=== PATIENT | female | born 1970 | race Caucasian/White ===

== ENCOUNTER 2016-11-05 17:10 | Emergency (ER) | payer OTHER ==
[~2016-11-05] VITALS: Wt 54.4 kg
[~2016-11-05 17:10] MED LIST: AMOXICILLIN500 MG PO; AMOXIL125 MG/5 M PO; CIPRO500 MG PO; CLARITIN10 MG PO; DIFLUCAN150 MG PO; FLEXERIL10 MG PO; FLEXERIL5 MG PO; HYDROCODONE BIT1 T11 PO; MEDROL DOSEPAK4 MG PO; MOTRIN800 MG PO; NYQUIL; OMEPRAZOLE20 MG PO; PREDNICOT20 MG PO; PREDNISONE20 M1 PO; PROVENTIL0.09 MG/AC IH; TRAMADOL HCL50 MG PO; TYLENOL EXTRA500 MG PO; ULTRAM50 MG PO; VIBRAMYCIN100 MG PO; VICODIN 5/500 505 MG PO; VICODIN ES 7501 TAB PO; ZITHROMAX Z PA250 MG PO; ZOCOR5 MG PO
[2016-11-05 18:19] LABS: BASO # 0.1 10*3/uL (0.0-0.1); BASO % 0.6 % (0.0-1.0); EOS # 0.9 10*3/uL (0.0-0.4); HEMOGLOBIN 11.9 g/dl (12.0-16.0); IG # 0.1 10*3/uL (0.0-0.1); LYMPH # 2.2 10*3/uL (1.3-4.4); LYMPH % 17.6 % (27.0-41.0); MEAN CELL VOLUME 95.5 fl (81.0-99.0); MEAN CORPUSCULAR HGB 31.6 pg (27.0-31.0); MEAN CORPUSCULAR HGB CONC 33.1 g/dl (33.0-37.0); MEAN PLATELET VOLUME 10.2 fl (9.6-12.3); MONO # 0.6 10*3/uL (0.1-1.0); NEUT # 8.8 10*3/uL (2.3-7.9); NEUT % 69.4 % (47.0-73.0); PLATELET COUNT AUTOMATED 247 10*3/uL (130-400); RED BLOOD COUNT 3.77 10*6/uL (4.10-5.10); RED CELL DISTRI WIDTH 12.8 % (0-14.5); WHITE BLOOD COUNT 12.7 10*3/uL (4.8-10.8)
[2016-11-05 18:28] LABS: PROTHROMBIN TIME 10.1 SECONDS (9.0-12.4)
[2016-11-05 18:38] LABS: ALBUMIN 3.2 gm/dl (3.1-4.5); ALKALINE PHOSPHATASE 66 U/L (45-117); BILIRUBIN, TOTAL 0.2 mg/dl (0.2-1.0); BUN 10 mg/dl (7-24); CARBON DIOXIDE 29 mmol/L (21-32); CHLORIDE 107 mmol/L (98-107); EST GLOM FILT AFRICAN AMERICAN > 60 ml/min; GLUCOSE 95 mg/dL (65-99); POTASSIUM 4.4 mmol/L (3.5-5.1); SGOT/AST 17 IU/L (3-35); SGPT/ALT 20 U/L (12-78); SODIUM 142 mmol/L (136-145)
[2016-11-05 18:39] LABS: TROPONIN I < 0.015 ng/ml (<0.045)
[2016-11-05 19:46] VITALS: BP 108/67
[2016-11-05] MEDS ORDERED: LEVAQUIN750 M1 PO (21:25)
== END 2016-11-05 21:31 | disposition home or self-care (01) ==
LOC: ED 17:10
PROVIDERS: Physician Assistant
DX: J18.9 Pneumonia, unspecified organism (principal); F17.200 Nicotine dependence, unspecified, uncomplicated; Z88.1 Allergy status to other antibiotic agents; Z88.6 Allergy status to analgesic agent

== ENCOUNTER 2017-05-13 15:30 | Emergency (ER) | payer OTHER ==
[~2017-05-13 15:30] MED LIST changes: +LEVAQUIN750 M1 PO
[2017-05-13 15:48] VITALS: BP 120/83
[2017-05-13] MEDS ORDERED: Motrin,Rufen800 MG PO (16:12)
[2017-05-13] MEDS ORDERED: CYCLOBENZAPRINE10 MG PO (16:12)
== END 2017-05-13 16:19 | disposition home or self-care (01) ==
LOC: ED 15:30
DX: G89.29 Other chronic pain (principal); M54.41 Lumbago with sciatica, right side; F17.200 Nicotine dependence, unspecified, uncomplicated; Z98.51 Tubal ligation status; Z90.710 Acquired absence of both cervix and uterus; Z88.6 Allergy status to analgesic agent; Z79.899 Other long term (current) drug therapy

== ENCOUNTER 2017-07-01 13:57 | Emergency (ER) | payer SELFPAY ==
[~2017-07-01] VITALS: Ht 162.5 cm; Wt 52.6 kg
[~2017-07-01 13:57] MED LIST changes: +CYCLOBENZAPRINE10 MG PO; +Motrin,Rufen800 MG PO
[2017-07-01 14:18] VITALS: BP 136/84
[2017-07-01 15:16] LABS: ALBUMIN 3.6 gm/dl (3.1-4.5); ALKALINE PHOSPHATASE 66 U/L (45-117); BUN 19 mg/dl (7-24); CHLORIDE 108 mmol/L (98-107); CREATININE 0.79 mg/dL (0.55-1.02); POTASSIUM 4.3 mmol/L (3.5-5.1); SGOT/AST 29 IU/L (3-35); SGPT/ALT 26 U/L (12-78); SODIUM 141 mmol/L (136-145); TOTAL PROTEIN 7.1 gm/dL (6.4-8.2)
[2017-07-01 15:44] LABS: BASO # 0.1 10*3/uL (0.0-0.1); BASO % 1.2 % (0.0-1.0); EOS # 0.4 10*3/uL (0.0-0.4); EOS % 4.2 % (1.0-4.0); HEMATOCRIT 36.9 % (37.0-47.0); HEMOGLOBIN 12.6 g/dl (12.0-16.0); LYMPH # 3.2 10*3/uL (1.3-4.4); LYMPH % 36.6 % (27.0-41.0); MEAN CELL VOLUME 94.9 fl (81.0-99.0); MEAN CORPUSCULAR HGB 32.4 pg (27.0-31.0); MEAN CORPUSCULAR HGB CONC 34.1 g/dl (33.0-37.0); MEAN PLATELET VOLUME 10.2 fl (9.6-12.3); MONO # 0.8 10*3/uL (0.1-1.0); MONO % 9.5 % (3.0-9.0); NEUT # 4.2 10*3/uL (2.3-7.9); NEUT % 48.3 % (47.0-73.0); PLATELET COUNT AUTOMATED 236 10*3/uL (130-400); RED BLOOD COUNT 3.89 10*6/uL (4.10-5.10); RED CELL DISTRI WIDTH 13.4 % (0-14.5); WHITE BLOOD COUNT 8.6 10*3/uL (4.8-10.8)
[2017-07-01] MEDS ORDERED: CHERATUSSIN AC118 M1 PO (16:20)
[2017-07-01] MEDS ORDERED: MEDROL DOSEPAK4 MG PO (16:20)
[2017-07-01] MEDS ORDERED: CYCLOBENZAPRINE5 M3 PO (16:20)
[2017-07-01] MEDS ORDERED: ZITHROMAX250 MG PO (16:20)
== END 2017-07-01 17:19 | disposition home or self-care (01) ==
LOC: ED 13:57
PROVIDERS: Nurse Practitioner
DX: M54.31 Sciatica, right side (principal); J40 Bronchitis, not specified as acute or chronic; R09.81 Nasal congestion; M79.604 Pain in right leg; F17.200 Nicotine dependence, unspecified, uncomplicated; F10.10 Alcohol abuse, uncomplicated; Z79.899 Other long term (current) drug therapy; Z98.51 Tubal ligation status; Z88.8 Allergy status to other drugs, medicaments and biological substances

== ENCOUNTER 2017-07-22 13:29 | Emergency (ER) | payer SELFPAY ==
[~2017-07-22] VITALS: Ht 162.5 cm; Wt 53.1 kg
[~2017-07-22 13:29] MED LIST changes: +CHERATUSSIN AC118 M1 PO; +CYCLOBENZAPRINE5 M3 PO; +ZITHROMAX250 MG PO
[2017-07-22 14:11] VITALS: BP 96/63
[2017-07-22] MEDS ORDERED: MEDROL DOSEPAK4 MG PO (14:33)
== END 2017-07-22 14:49 | disposition home or self-care (01) ==
LOC: ED 13:29
DX: M54.16 Radiculopathy, lumbar region (principal); F17.200 Nicotine dependence, unspecified, uncomplicated; Z98.51 Tubal ligation status; Z90.710 Acquired absence of both cervix and uterus; Z79.899 Other long term (current) drug therapy; Z88.6 Allergy status to analgesic agent; Z88.8 Allergy status to other drugs, medicaments and biological substances

== ENCOUNTER → 2017-11-18 | Outpatient (CLI) | payer OTHER | END | disposition home or self-care (01) | LOC: MRI 12:58 | DX: G91.9 Hydrocephalus, unspecified (principal) ==

== ENCOUNTER 2018-05-04 20:24 | Emergency (ER) | payer SELFPAY ==
[~2018-05-04] VITALS: Ht 162.5 cm; Wt 51.7 kg
[~2018-05-04 20:24] MED LIST changes: +CEPHALEXIN500 M1 PO
[2018-05-04 20:58] LABS: BASO # 0.1 10*3/uL (0.0-0.1); BASO % 1.7 % (0.0-1.0); EOS # 0.5 10*3/uL (0.0-0.4); EOS % 6.8 % (1.0-4.0); HEMATOCRIT 35.1 % (37.0-47.0); LYMPH # 2.9 10*3/uL (1.3-4.4); LYMPH % 39.2 % (27.0-41.0); MEAN CELL VOLUME 92.1 fl (81.0-99.0); MEAN CORPUSCULAR HGB 31.5 pg (27.0-31.0); MEAN CORPUSCULAR HGB CONC 34.2 g/dl (33.0-37.0); MONO # 0.7 10*3/uL (0.1-1.0); MONO % 9.9 % (3.0-9.0); NEUT # 3.2 10*3/uL (2.3-7.9); NEUT % 42.1 % (47.0-73.0); PLATELET COUNT AUTOMATED 232 10*3/uL (130-400); RED BLOOD COUNT 3.81 10*6/uL (4.10-5.10); RED CELL DISTRI WIDTH 12.9 % (0-14.5); WHITE BLOOD COUNT 7.5 10*3/uL (4.8-10.8)
[2018-05-04 21:14] LABS: ALBUMIN 3.4 gm/dl (3.1-4.5); ALKALINE PHOSPHATASE 51 U/L (45-117); BUN 15 mg/dl (7-24); CHLORIDE 109 mmol/L (98-107); CREATININE 0.86 mg/dL (0.55-1.02); LIPASE 156 U/L (73-393); POTASSIUM 3.4 mmol/L (3.5-5.1); SGOT/AST 8 IU/L (3-35); SGPT/ALT 15 U/L (12-78); SODIUM 144 mmol/L (136-145); TOTAL PROTEIN 6.7 gm/dL (6.4-8.2)
[2018-05-04 21:42] VITALS: BP 145/79
[2018-05-04 22:27] LABS: BILIRUBIN 1+ (NEGATIVE); BLOOD NEGATIVE (NEGATIVE); CLARITY CLOUDY (CLEAR); COLOR YELLOW (YELLOW); GLUCOSE NEGATIVE (NEGATIVE); KETONE TRACE (NEGATIVE); LEUKO ESTERASE NEGATIVE (NEGATIVE); NITRITE NEGATIVE (NEGATIVE); SPECIFIC GRAVITY 1.025 (1.005-1.030); UROBILINOGEN 0.2 E.U./dl (0.2-1.0)
[2018-05-04 22:36] LABS: BACTERIA 4+; CALCIUM OXALATE CRYSTALS 3+; EPITHELIAL CELLS TNTC; MUCOUS 2+
[2018-05-04] MEDS ORDERED: ZOFRAN ODT4 MG SL (23:27)
== END 2018-05-05 00:51 | disposition home or self-care (01) ==
LOC: ED 20:24
PROVIDERS: Physician Assistant
DX: R11.2 Nausea with vomiting, unspecified (principal); R19.7 Diarrhea, unspecified; R10.9 Unspecified abdominal pain; Z88.6 Allergy status to analgesic agent; Z88.8 Allergy status to other drugs, medicaments and biological substances; Z98.51 Tubal ligation status

== ENCOUNTER 2018-09-22 13:16 | Emergency (ER) | payer OTHER ==
[~2018-09-22] VITALS: Ht 162.5 cm; Wt 54.4 kg
--- NOTE | ~2018-09-22 | EKG ---
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
[~2018-09-22 13:16] MED LIST changes: +ZOFRAN ODT4 MG SL
[2018-09-22 13:19] VITALS: BP 147/89
[2018-09-22 13:36] LABS: BILIRUBIN NEGATIVE (NEGATIVE); BLOOD NEGATIVE (NEGATIVE); CLARITY SL CLOUDY (CLEAR); COLOR YELLOW (YELLOW); GLUCOSE NEGATIVE (NEGATIVE); KETONE NEGATIVE (NEGATIVE); LEUKO ESTERASE NEGATIVE (NEGATIVE); NITRITE NEGATIVE (NEGATIVE); SPECIFIC GRAVITY <= 1.005 (1.005-1.030); UROBILINOGEN 0.2 E.U./dl (0.2-1.0)
[2018-09-22 13:53] LABS: BACTERIA 1+
[2018-09-22 14:20] LABS: BASO # 0.1 10*3/uL (0.0-0.1); BASO % 1.6 % (0.0-1.0); EOS # 0.2 10*3/uL (0.0-0.4); EOS % 3.6 % (1.0-4.0); HEMATOCRIT 39.2 % (37.0-47.0); HEMOGLOBIN 13.3 g/dl (12.0-16.0); LYMPH # 1.9 10*3/uL (1.3-4.4); LYMPH % 29.2 % (27.0-41.0); MEAN CELL VOLUME 95.1 fl (81.0-99.0); MEAN CORPUSCULAR HGB 32.3 pg (27.0-31.0); MEAN CORPUSCULAR HGB CONC 33.9 g/dl (33.0-37.0); MEAN PLATELET VOLUME 10.2 fl (9.6-12.3); MONO # 0.7 10*3/uL (0.1-1.0); MONO % 10.5 % (3.0-9.0); NEUT # 3.5 10*3/uL (2.3-7.9); NEUT % 54.8 % (47.0-73.0); PLATELET COUNT AUTOMATED 212 10*3/uL (130-400); RED BLOOD COUNT 4.12 10*6/uL (4.10-5.10); RED CELL DISTRI WIDTH 13.2 % (0-14.5); WHITE BLOOD COUNT 6.4 10*3/uL (4.8-10.8)
[2018-09-22 14:45] LABS: ALBUMIN 3.7 gm/dl (3.1-4.5); ALKALINE PHOSPHATASE 51 U/L (45-117); BUN 17 mg/dl (7-24); CHLORIDE 108 mmol/L (98-107); CREATININE 0.84 mg/dL (0.55-1.02); POTASSIUM 3.8 mmol/L (3.5-5.1); SGOT/AST 10 IU/L (3-35); SGPT/ALT 14 U/L (12-78); SODIUM 139 mmol/L (136-145); TOTAL PROTEIN 7.4 gm/dL (6.4-8.2)
[2018-09-22 14:50] LABS: TROPONIN I < 0.015 ng/ml (<0.045)
== END 2018-09-22 16:15 | disposition home or self-care (01) ==
LOC: ED 13:16
PROVIDERS: Emergency Medicine; Physician Assistant
DX: R29.810 Facial weakness (principal); M79.602 Pain in left arm; M79.605 Pain in left leg; Z88.6 Allergy status to analgesic agent; Z88.8 Allergy status to other drugs, medicaments and biological substances; Z90.710 Acquired absence of both cervix and uterus

== ENCOUNTER 2018-12-11 11:22 | Emergency (ER) | payer OTHER ==
[~2018-12-11] VITALS: Ht 162.5 cm; Wt 49.9 kg
[2018-12-11 11:23] VITALS: BP 132/76
[2018-12-11] MEDS ORDERED: ANTIBIOTIC28.4 GM T (11:54)
== END 2018-12-11 12:04 | disposition home or self-care (01) ==
LOC: ED 11:22
DX: L55.0 Sunburn of first degree (principal); Z88.6 Allergy status to analgesic agent; Z88.8 Allergy status to other drugs, medicaments and biological substances

== ENCOUNTER → 2018-12-30 | Outpatient (CLI) | payer OTHER ==
[~2018-12-30] MED LIST changes: +ANTIBIOTIC28.4 GM T
== END | disposition home or self-care (01) ==
LOC: LAB 14:00
PROVIDERS: Psychiatry & Neurology Neurology
DX: R25.1 Tremor, unspecified (principal); R63.4 Abnormal weight loss; M79.10 Myalgia, unspecified site

== ENCOUNTER 2019-01-26 15:07 | Emergency (ER) | payer OTHER ==
[~2019-01-26] VITALS: Ht 162.5 cm; Wt 52.2 kg
[2019-01-26 15:10] VITALS: BP 146/105
[2019-01-26] MEDS ORDERED: CYCLOBENZAPRINE10 MG PO (16:56)
[2019-01-26] MEDS ORDERED: MEDROL DOSEPAK4 MG PO (16:56)
== END 2019-01-26 17:15 | disposition home or self-care (01) ==
LOC: ED 15:07
DX: S80.812A Abrasion, left lower leg, initial encounter (principal); M54.12 Radiculopathy, cervical region; M25.562 Pain in left knee; G40.909 Epilepsy, unspecified, not intractable, without status epilepticus; Z88.6 Allergy status to analgesic agent; Z88.8 Allergy status to other drugs, medicaments and biological substances; Z79.2 Long term (current) use of antibiotics; Z90.710 Acquired absence of both cervix and uterus; V94.0XXA Hitting object or bottom of body of water due to fall from watercraft, initial encounter; Y93.89 Activity, other specified; Y92.89 Other specified places as the place of occurrence of the external cause; Y99.8 Other external cause status

== ENCOUNTER 2020-01-08 06:08 | Emergency (ER) | payer OTHER ==
[~2020-01-08] VITALS: Ht 170.1 cm; Wt 61.2 kg
[2020-01-08 06:09] VITALS: BP 117/80
== END 2020-01-08 06:59 | disposition left against medical advice (07) ==
LOC: ED 06:08
DX: F10.129 Alcohol abuse with intoxication, unspecified (principal); F31.9 Bipolar disorder, unspecified; E78.5 Hyperlipidemia, unspecified; F17.200 Nicotine dependence, unspecified, uncomplicated; Z88.8 Allergy status to other drugs, medicaments and biological substances; Z79.899 Other long term (current) drug therapy

== ENCOUNTER → 2020-07-09 | Outpatient (CLI) | payer OTHER | END | disposition home or self-care (01) | LOC: COVID19 14:54 | PROVIDERS: ATTEND Internal Medicine | DX: Z20.828 Contact with and (suspected) exposure to other viral communicable diseases (principal) ==

== ENCOUNTER 2020-09-11 01:53 | Emergency (ER) | payer OTHER ==
[~2020-09-11] VITALS: Wt 63.5 kg
[2020-09-11 02:40] LABS: BASO # 0.1 10*3/uL (0.0-0.1); BASO % 1.3 % (0.0-1.0); EOS # 0.3 10*3/uL (0.0-0.4); EOS % 3.3 % (1.0-4.0); HEMATOCRIT 42.5 % (37.0-47.0); LYMPH # 2.8 10*3/uL (1.3-4.4); LYMPH % 30.1 % (27.0-41.0); MEAN CORPUSCULAR HGB 30.4 pg (27.0-31.0); MEAN CORPUSCULAR HGB CONC 32.7 g/dl (33.0-37.0); MEAN PLATELET VOLUME 10.4 fl (9.6-12.3); MONO # 0.5 10*3/uL (0.1-1.0); MONO % 5.8 % (3.0-9.0); NEUT # 5.5 10*3/uL (2.3-7.9); NEUT % 59.3 % (47.0-73.0); PLATELET COUNT AUTOMATED 317 10*3/uL (130-400); RED BLOOD COUNT 4.57 10*6/uL (4.10-5.10); RED CELL DISTRI WIDTH 13.4 % (0-14.5); WHITE BLOOD COUNT 9.2 10*3/uL (4.8-10.8)
[2020-09-11 02:40] LABS: BILIRUBIN Negative (Negative); BLOOD Negative (Negative); CLARITY Clear (Clear); COLOR Yellow (Yellow); GLUCOSE Negative (Negative); KETONE Negative (Negative); LEUKO ESTERASE Negative (Negative); NITRITE Negative (Negative); SPECIFIC GRAVITY <= 1.005 (1.001-1.030); UROBILINOGEN 0.2 E.U./dl (0.0-1.0)
[2020-09-11 02:48] LABS: URINE AMPHETAMINES < 1000 (1000ng/ml); URINE BARBITURATES < 200 (200ng/ml); URINE BENZODIAZEPINES < 200 (200ng/ml); URINE CANNABINOIDS (THC) > 50 (50ng/ml); URINE COCAINE < 300 (300ng/ml); URINE METHADONE < 300 (300ng/ml); URINE OPIATES < 300 (300ng/ml)
[2020-09-11 02:49] LABS: URINE PHENCYCLIDINE < 25 (25ng/ml)
[2020-09-11 02:54] LABS: ALBUMIN 4.1 gm/dl (3.1-4.5); ALKALINE PHOSPHATASE 69 U/L (45-117); BUN 11 mg/dl (7-24); CHLORIDE 111 mmol/L (98-107); CREATININE 0.82 mg/dL (0.55-1.02); SGOT/AST 8 IU/L (3-35); SGPT/ALT 20 U/L (12-78); SODIUM 144 mmol/L (136-145); TOTAL PROTEIN 8.3 gm/dL (6.4-8.2)
[2020-09-11 03:04] LABS: BACTERIA TRACE
[2020-09-11 05:00] VITALS: BP 98/67
== END 2020-09-11 15:56 | disposition home or self-care (01) ==
LOC: ED 01:53
PROVIDERS: Internal Medicine
DX: F10.129 Alcohol abuse with intoxication, unspecified (principal); F31.9 Bipolar disorder, unspecified; E78.5 Hyperlipidemia, unspecified; Z88.8 Allergy status to other drugs, medicaments and biological substances; Z79.899 Other long term (current) drug therapy; Z98.51 Tubal ligation status; Z90.711 Acquired absence of uterus with remaining cervical stump; Y90.8 Blood alcohol level of 240 mg/100 ml or more

== ENCOUNTER 2020-12-27 17:17 | Emergency (ER) | payer OTHER ==
[~2020-12-27] VITALS: Ht 162.5 cm; Wt 58.5 kg
[2020-12-27 17:30] VITALS: BP 118/97
[2020-12-27] MEDS ORDERED: CYCLOBENZAPRINE10 MG PO (18:56)
[2020-12-27] MEDS ORDERED: Motrin,Rufen800 MG PO (18:56)
== END 2020-12-27 19:09 | disposition home or self-care (01) ==
LOC: ED 17:17
DX: M77.8 Other enthesopathies, not elsewhere classified (principal); Z88.6 Allergy status to analgesic agent; Z88.8 Allergy status to other drugs, medicaments and biological substances; Z98.890 Other specified postprocedural states; Z98.51 Tubal ligation status; Z90.711 Acquired absence of uterus with remaining cervical stump

== ENCOUNTER 2021-03-27 16:49 | Emergency (ER) | payer OTHER ==
[~2021-03-27] VITALS: Wt 54.4 kg
[2021-03-27 20:23] LABS: BASO # 0.1 10*3/uL (0.0-0.1); BASO % 0.8 % (0.0-1.0); EOS # 0.4 10*3/uL (0.0-0.4); EOS % 3.8 % (1.0-4.0); HEMATOCRIT 41.8 % (37.0-47.0); LYMPH # 1.2 10*3/uL (1.3-4.4); LYMPH % 10.3 % (27.0-41.0); MEAN CELL VOLUME 92.9 fl (81.0-99.0); MEAN CORPUSCULAR HGB 30.7 pg (27.0-31.0); MEAN PLATELET VOLUME 10.3 fl (9.6-12.3); MONO # 0.9 10*3/uL (0.1-1.0); NEUT # 8.8 10*3/uL (2.3-7.9); NEUT % 76.8 % (47.0-73.0); PLATELET COUNT AUTOMATED 271 10*3/uL (130-400); WHITE BLOOD COUNT 11.4 10*3/uL (4.8-10.8)
[2021-03-27 20:39] LABS: ALBUMIN 3.8 gm/dl (3.1-4.5); ALKALINE PHOSPHATASE 77 U/L (45-117); BUN 12 mg/dl (7-24); CHLORIDE 103 mmol/L (98-107); CREATININE 0.86 mg/dL (0.55-1.02); POTASSIUM 3.4 mmol/L (3.5-5.1); SGOT/AST 14 IU/L (3-35); SGPT/ALT 16 U/L (12-78); SODIUM 137 mmol/L (136-145); TOTAL PROTEIN 8.1 gm/dL (6.4-8.2)
[2021-03-27 23:56] VITALS: BP 113/71
[2021-03-28] MEDS ORDERED: PREDNISONE10 M1 PO (00:35)
[2021-03-28] MEDS ORDERED: TESSALON PERLE100 MG PO (00:35)
== END 2021-03-28 01:00 | disposition home or self-care (01) ==
LOC: ED 16:49
PROVIDERS: Emergency Medicine
DX: J06.9 Acute upper respiratory infection, unspecified (principal); J40 Bronchitis, not specified as acute or chronic; F17.200 Nicotine dependence, unspecified, uncomplicated; Z88.6 Allergy status to analgesic agent; Z88.8 Allergy status to other drugs, medicaments and biological substances

== ENCOUNTER 2021-06-25 16:07 | Emergency (ER) | payer OTHER ==
[~2021-06-25] VITALS: Wt 68.0 kg
[~2021-06-25 16:07] MED LIST changes: +PREDNISONE10 M1 PO; +TESSALON PERLE100 MG PO
[2021-06-25 16:14] VITALS: BP 144/67
[2021-06-25] MEDS ORDERED: AMOXICILLIN500 M2 PO (16:30)
== END 2021-06-25 16:54 | disposition home or self-care (01) ==
LOC: ED 16:07
DX: K08.89 Other specified disorders of teeth and supporting structures (principal)

== ENCOUNTER → 2021-09-15 | Outpatient (CLI) | payer OTHER ==
[~2021-09-15] MED LIST changes: +AMOXICILLIN500 M2 PO
== END | disposition home or self-care (01) ==
LOC: RAD 14:45
PROVIDERS: ATTEND Family Medicine
DX: M47.812 Spondylosis without myelopathy or radiculopathy, cervical region (principal); M25.78 Osteophyte, vertebrae; M89.38 Hypertrophy of bone, other site; M48.02 Spinal stenosis, cervical region

== ENCOUNTER 2021-11-02 22:19 | Emergency (ER) | payer OTHER ==
[~2021-11-02] VITALS: Ht 162.5 cm; Wt 59.0 kg
[2021-11-02 22:26] VITALS: BP 134/73
[2021-11-02 22:59] LABS: BILIRUBIN Negative (Negative); BLOOD Negative (Negative); CLARITY Clear (Clear); COLOR Yellow (Yellow); GLUCOSE Negative (Negative); KETONE Negative (Negative); LEUKO ESTERASE Trace (Negative); NITRITE Negative (Negative); PH 7.5 (4.5-8.0); SPECIFIC GRAVITY 1.025 (1.001-1.030)
[2021-11-02 23:11] LABS: BACTERIA TRACE
== END 2021-11-02 22:57 | disposition home or self-care (01) ==
LOC: ED 22:19
PROVIDERS: Internal Medicine
DX: R33.9 Retention of urine, unspecified (principal); Z98.51 Tubal ligation status; Z79.899 Other long term (current) drug therapy

== ENCOUNTER → 2021-11-02 | Day surgery (SDC) | payer OTHER ==
[~2021-11-02] VITALS: Ht 162.5 cm; Wt 59.0 kg
[~2021-11-02] MED LIST changes: +COLACE100 MG PO; +KEPPRA1000 MG PO; +PERCOCET 5-3251 EACH PO; +Tegretol-Xr 10100 MG PO; +ZOFRAN4 MG PO
[2021-11-02 09:25] VITALS: BP 113/62
[2021-11-02 11:21] VITALS: BP 148/98
[2021-11-02 11:32] VITALS: BP 113/30
[2021-11-02 12:05] VITALS: BP 117/46
[2021-11-02 14:20] VITALS: BP 119/46
== END | disposition home or self-care (01) ==
LOC: SDC 10-30 14:00
PROVIDERS: ATTEND Surgery
DX: K64.8 Other hemorrhoids (principal); F25.0 Schizoaffective disorder, bipolar type; E78.5 Hyperlipidemia, unspecified; F43.10 Post-traumatic stress disorder, unspecified; Z90.710 Acquired absence of both cervix and uterus; F41.9 Anxiety disorder, unspecified; F32.9 Major depressive disorder, single episode, unspecified; F17.210 Nicotine dependence, cigarettes, uncomplicated; Z79.899 Other long term (current) drug therapy

== ENCOUNTER 2021-11-13 14:35 | Emergency (ER) | payer OTHER ==
[~2021-11-13] VITALS: Wt 59.0 kg
[2021-11-13 15:49] VITALS: BP 115/64
== END 2021-11-13 16:38 | disposition home or self-care (01) ==
LOC: ED 14:35
DX: G89.18 Other acute postprocedural pain (principal); F17.200 Nicotine dependence, unspecified, uncomplicated; Z98.51 Tubal ligation status; Z98.890 Other specified postprocedural states

== ENCOUNTER 2022-02-26 20:46 | Emergency (ER) | payer OTHER ==
[~2022-02-26] VITALS: Ht 162.5 cm; Wt 52.2 kg
[2022-02-26 21:38] LABS: BASO # 0.1 10*3/uL (0.0-0.1); BASO % 1.3 % (0.0-1.0); EOS # 0.5 10*3/uL (0.0-0.4); EOS % 5.2 % (1.0-4.0); HEMATOCRIT 35.2 % (37.0-47.0); LYMPH # 2.1 10*3/uL (1.3-4.4); MEAN CELL VOLUME 91.4 fl (81.0-99.0); MEAN CORPUSCULAR HGB 31.2 pg (27.0-31.0); MEAN CORPUSCULAR HGB CONC 34.1 g/dl (33.0-37.0); MEAN PLATELET VOLUME 9.9 fl (9.6-12.3); MONO # 0.8 10*3/uL (0.1-1.0); MONO % 9.5 % (3.0-9.0); NEUT # 5.2 10*3/uL (2.3-7.9); NEUT % 59.8 % (47.0-73.0); PLATELET COUNT AUTOMATED 272 10*3/uL (130-400); RED BLOOD COUNT 3.85 10*6/uL (4.10-5.10); RED CELL DISTRI WIDTH 14.1 % (0-14.5); WHITE BLOOD COUNT 8.6 10*3/uL (4.8-10.8)
[2022-02-26 21:56] LABS: ALKALINE PHOSPHATASE 65 U/L (45-117); BUN 13 mg/dl (7-24); CHLORIDE 107 mmol/L (98-107); CREATININE 0.83 mg/dL (0.55-1.02); POTASSIUM 3.5 mmol/L (3.5-5.1); SGOT/AST 11 IU/L (3-35); SGPT/ALT 12 U/L (12-78); SODIUM 142 mmol/L (136-145); TOTAL PROTEIN 6.7 gm/dL (6.4-8.2)
[2022-02-26 22:07] VITALS: BP 146/96
== END 2022-02-26 23:26 | disposition home or self-care (01) ==
LOC: ED 20:46
PROVIDERS: Nurse Practitioner Family
DX: K59.00 Constipation, unspecified (principal); F17.200 Nicotine dependence, unspecified, uncomplicated; Z98.51 Tubal ligation status; Z90.710 Acquired absence of both cervix and uterus

== ENCOUNTER 2022-02-28 22:06 | Emergency (ER) | payer OTHER ==
[~2022-02-28] VITALS: Ht 162.5 cm; Wt 52.2 kg
[2022-02-28 22:29] VITALS: BP 137/86
[2022-02-28 23:23] LABS: BASO # 0.1 10*3/uL (0.0-0.1); BASO % 1.3 % (0.0-1.0); EOS # 0.5 10*3/uL (0.0-0.4); EOS % 7.1 % (1.0-4.0); HEMATOCRIT 36.8 % (37.0-47.0); LYMPH # 2.7 10*3/uL (1.3-4.4); LYMPH % 40.1 % (27.0-41.0); MEAN CELL VOLUME 92.9 fl (81.0-99.0); MEAN CORPUSCULAR HGB 30.6 pg (27.0-31.0); MEAN CORPUSCULAR HGB CONC 32.9 g/dl (33.0-37.0); MEAN PLATELET VOLUME 10.2 fl (9.6-12.3); MONO # 0.8 10*3/uL (0.1-1.0); MONO % 11.5 % (3.0-9.0); NEUT # 2.7 10*3/uL (2.3-7.9); NEUT % 39.9 % (47.0-73.0); PLATELET COUNT AUTOMATED 274 10*3/uL (130-400); RED BLOOD COUNT 3.96 10*6/uL (4.10-5.10); RED CELL DISTRI WIDTH 13.9 % (0-14.5); WHITE BLOOD COUNT 6.8 10*3/uL (4.8-10.8)
[2022-02-28 23:40] LABS: ACETAMINOPHEN (TYLENOL) < 5.0 ug/ml (10-30); ETHYL ALCOHOL < 3.0 mg/dl (<3)
[2022-02-28 23:41] LABS: ALKALINE PHOSPHATASE 58 U/L (45-117); BUN 14 mg/dl (7-24); CHLORIDE 109 mmol/L (98-107); CREATININE 0.74 mg/dL (0.55-1.02); POTASSIUM 3.7 mmol/L (3.5-5.1); SGOT/AST 10 IU/L (3-35); SGPT/ALT 11 U/L (12-78); SODIUM 144 mmol/L (136-145); TOTAL PROTEIN 6.5 gm/dL (6.4-8.2)
[2022-03-01 00:56] LABS: URINE AMPHETAMINES < 1000 (1000ng/ml); URINE BARBITURATES < 200 (200ng/ml); URINE BENZODIAZEPINES < 200 (200ng/ml); URINE CANNABINOIDS (THC) > 50 (50ng/ml); URINE COCAINE > 300 (300ng/ml); URINE METHADONE < 300 (300ng/ml); URINE OPIATES < 300 (300ng/ml)
[2022-03-01 01:06] LABS: URINE PHENCYCLIDINE < 25 (25ng/ml)
[2022-03-01 04:08] LABS: BILIRUBIN Negative (Negative); BLOOD Negative (Negative); CLARITY Cloudy (Clear); COLOR Yellow (Yellow); GLUCOSE Negative (Negative); KETONE Negative (Negative); LEUKO ESTERASE Negative (Negative); NITRITE Negative (Negative); PH 6.5 (4.5-8.0)
[2022-03-01 04:27] LABS: BACTERIA 1+; EPITHELIAL CELLS 16-20; MUCOUS 1+
== END 2022-03-01 09:51 | disposition home or self-care (01) ==
LOC: ED 22:06
PROVIDERS: Emergency Medicine
DX: F43.21 Adjustment disorder with depressed mood (principal); F19.90 Other psychoactive substance use, unspecified, uncomplicated; R45.851 Suicidal ideations; R42 Dizziness and giddiness; R53.83 Other fatigue; R51.9 Headache, unspecified; F17.200 Nicotine dependence, unspecified, uncomplicated; Z79.899 Other long term (current) drug therapy; Z98.51 Tubal ligation status; Z90.710 Acquired absence of both cervix and uterus

== ENCOUNTER 2022-08-13 15:45 | Emergency (ER) | payer OTHER ==
[~2022-08-13] VITALS: Ht 162.5 cm; Wt 57.6 kg
[2022-08-13 17:20] VITALS: BP 146/99
[2022-08-13 18:02] LABS: BASO # 0.1 10*3/uL (0.0-0.1); BASO % 1.3 % (0.0-1.0); EOS # 0.2 10*3/uL (0.0-0.4); HEMATOCRIT 38.9 % (37.0-47.0); LYMPH # 2.2 10*3/uL (1.3-4.4); LYMPH % 31.9 % (27.0-41.0); MEAN CORPUSCULAR HGB 32.3 pg (27.0-31.0); MEAN CORPUSCULAR HGB CONC 33.7 g/dl (33.0-37.0); MEAN PLATELET VOLUME 10.2 fl (9.6-12.3); MONO # 0.7 10*3/uL (0.1-1.0); MONO % 10.7 % (3.0-9.0); NEUT # 3.6 10*3/uL (2.3-7.9); NEUT % 52.8 % (47.0-73.0); PLATELET COUNT AUTOMATED 259 10*3/uL (130-400); RED BLOOD COUNT 4.05 10*6/uL (4.10-5.10); RED CELL DISTRI WIDTH 13.4 % (0-14.5); WHITE BLOOD COUNT 6.9 10*3/uL (4.8-10.8)
[2022-08-13] MEDS ORDERED: Ondansetron4 MG PO (18:03)
[2022-08-13] MEDS ORDERED: VIBRA-TAB100 MG PO (18:03)
[2022-08-13 18:23] LABS: ALKALINE PHOSPHATASE 64 U/L (46-116); BUN 12 mg/dl (9-23); CHLORIDE 103 mmol/L (98-107); POTASSIUM 3.7 mmol/L (3.4-5.1); SGPT/ALT 14 U/L (10-49); TOTAL PROTEIN 6.8 gm/dL (6.0-8.0)
== END 2022-08-13 18:26 | disposition home or self-care (01) ==
LOC: ED 15:45
PROVIDERS: Internal Medicine
DX: L04.0 Acute lymphadenitis of face, head and neck (principal); Z98.51 Tubal ligation status; Z90.710 Acquired absence of both cervix and uterus; Z98.890 Other specified postprocedural states; F10.90 Alcohol use, unspecified, uncomplicated